=== PATIENT | male | born 1975 | race Caucasian/White ===

== ENCOUNTER 2019-02-17 20:02 | Emergency (ER) | payer BC ==
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
[2019-02-17 21:26] VITALS: BP 144/73; PULSE 87
[2019-02-17 21:34] VITALS: O2SAT 95
--- NOTE | 2019-02-18 09:26 | XRAY ---
Indication: Right head injury with pain and bruising. Multiple contiguous axial images obtained through the head without contrast. Comparison: None Normal appearing brain parenchyma, ventricles, and bony calvarium. Visualized paranasal sinuses and mastoid air cells are clear. Impression: Normal CT head without contrast exam. CT DI 50.26
== END 2019-02-17 21:43 | disposition home or self-care (01) ==
LOC: ED 20:02
DX: S00.93XA Contusion of unspecified part of head, initial encounter (principal); R58 Hemorrhage, not elsewhere classified; W22.8XXA Striking against or struck by other objects, initial encounter; S01.81XA Laceration without foreign body of other part of head, initial encounter; E78.00 Pure hypercholesterolemia, unspecified; I10 Essential (primary) hypertension
CPT/HCPCS: 70450; 99283